=== PATIENT | female | born 1965 | race Caucasian/White ===

== ENCOUNTER 2018-07-23 14:52 | Outpatient (CLI) | payer OTHER ==
--- NOTE | 2018-07-23 16:13 | BD ---
BONE DENSITOMETRY USING DEXA: HISTORY: Postmenopausal screening for osteoporosis. FINDINGS: Lumbar Spine: BMD (g/cm2) L1 0.812 T-Score: -1.6 Z-Score: -0.7 L2 0.880 T-Score: -1.3 Z-Score: -0.3 L3 0.883 T-Score: -1.8 Z-Score: -0.7 L4 0.932 T-Score: -1.2 Z-Score: -0.1 L1-L4 0.878 T-Score: -1.5 Z-Score: -0.5 Femoral Neck: 0.790 T-Score: -1.3 Z-Score: -0.2 Total Femur: 0.941 T-Score: 0.0 Z-Score: 0.7 Impression: Osteopenia. POS: [facility]
== END 2018-07-23 14:53 | disposition home or self-care (01) ==
LOC: BICMAMMO 14:52
PROVIDERS: ATTEND Obstetrics & Gynecology
DX: Z12.31 Encounter for screening mammogram for malignant neoplasm of breast (principal); Z13.820 Encounter for screening for osteoporosis; M85.89 Other specified disorders of bone density and structure, multiple sites
CPT/HCPCS: 77063; 77067; 77080

== ENCOUNTER 2019-08-21 14:08 | Outpatient (CLI) | payer OTHER ==
--- NOTE | 2019-08-21 14:38 | MMO ---
Bilateral MAMMO Bilat Screen [facility]. CLINICAL HISTORY: Patient is 54 years old and is seen for screening. The patient has no family history of breast cancer. The patient has no personal history of cancer. The patient has a history of bilateral Breast reduction in 2001. VIEWS: The views performed were: bilateral craniocaudal with tomosynthesis and bilateral mediolateral oblique with tomosynthesis. FILMS COMPARED: The present examination has been compared to prior imaging studies performed at [facility] on 05/05/2015, 06/27/2016, 07/16/2017 and 07/23/2018. This study has been interpreted with the assistance of computer-aided detection. MAMMOGRAM FINDINGS: There are scattered fibroglandular densities. There are stable benign appearing calcifications seen in both breasts. There are no suspicious masses, suspicious calcifications, or new areas of architectural distortion. IMPRESSION: THERE IS NO MAMMOGRAPHIC EVIDENCE OF MALIGNANCY. A ROUTINE FOLLOW-UP MAMMOGRAM IN 1 YEAR IS RECOMMENDED. THE RESULTS OF THIS EXAM WERE SENT TO THE PATIENT. ACR BI-RADS Category 2 - Benign finding MAMMOGRAPHY NOTE: 1. A negative mammogram report should not delay a biopsy if a dominant of clinically suspicious mass is present. 2. Approximately 10% to 15% of breast cancers are not detected by mammography. 3. Adenosis and dense breasts may obscure an underlying neoplasm. Reported by: BLAKE AGUILAR MD Electonically Signed: [id number]
== END 2019-08-21 14:09 | disposition home or self-care (01) ==
LOC: BICMAMMO 14:08
PROVIDERS: ATTEND Physician Assistant
DX: Z12.31 Encounter for screening mammogram for malignant neoplasm of breast (principal)
CPT/HCPCS: 77063; 77067

== ENCOUNTER 2019-11-20 06:39 | Day surgery (SDC) | payer OTHER ==
[2019-11-19 15:15] VITALS: BMI 24.5
[2019-11-20 08:14] LABS: Bacteria/HPF None Seen HPF (None Seen); Bilirubin Negative (Negative); Blood, Urine Negative (Negative); Clarity Clear (Clear); Glucose, Urine (Dipstick) Normal (Negative); Leukocyte 250 Leu/uL (Negative); Nitrite Negative (Negative); Protein, Urine (Dipstick) Negative (Neg-Trace); Squamous Epithelial 0-3 HPF (0-3); Urobilinogen Normal mg/dL (Less than 2)
[2019-11-20] MEDS ORDERED: Bacitracin Zinc Ointment 30 gm TUBE ONE (08:16)
[2019-11-20] MEDS ORDERED: Bupivacaine PF 0.5% 30 ML VIAL ONE (08:16)
[2019-11-20 08:21] LABS: #Basophils 0.1 thou/uL (0.0-0.2); #Eosinphils 0.3 thou/uL (0.0-0.7); #Lymphocytes 1.8 thou/uL (1.20-3.40); #Monocytes 0.4 thou/uL (0.11-0.59); #Neutrophils 4.2 thou/uL (1.40-6.50); %Basophils 0.8 % (0.0-1.0); %Eosinophils 4.4 % (0.0-10.0); %Lymphocytes 27.1 % (21.0-51.0); %Monocytes 5.7 % (0.0-10.0); Hemoglobin 12.9 g/dL (12.0-16.0); Mean Corpuscular HGB CONC 34.3 g/dL (32.0-36.0); Mean Corpuscular Hemoglobin 32.7 pg (27.0-31.0); Mean Corpuscular Volume 95.3 fL (78.0-98.0); Mean Platelet Volume 6.9 fL (7.4-10.4); Platelet Count 284 thou/uL (130-400); RBC Distribution Width 12.1 % (11.5-14.5); Red Blood Cell (RBC) Count 3.93 mill/uL (4.20-5.40); White Blood Cell (WBC) Count 6.7 thou/uL (4.8-10.8)
[2019-11-20] MEDS ORDERED: Midazolam HCl 2 mg/2 ml Vial ONE ×2 (08:26→08:28)
[2019-11-20] MEDS ORDERED: Fentanyl 100 MCG/2 ML VIAL ONE ×2 (08:28→10:06)
[2019-11-20] MEDS ORDERED: Propofol 1,000 MG/100 ML VIAL IV ONE (08:28)
[2019-11-20] MEDS ORDERED: PROPOFOL 200 MG/20 ML VIAL ONE (09:29)
[2019-11-20] MEDS ORDERED: Ketorolac Tromethamine 30 MG/ML VIAL ONE (09:43)
--- NOTE | 2019-11-20 10:18 | OP ---
DATE OF PROCEDURE: 11/20/2019 PREOPERATIVE DIAGNOSES: 1. Wound with abscess, left small finger. 2. Possible myelitis, left small finger, distal phalanx. POSTOPERATIVE DIAGNOSES: 1. Wound with abscess, left small finger. 2. Possible myelitis, left small finger, distal phalanx. PROCEDURE PERFORMED: 1. Debridement of small finger wound. 2. Bone cortex incision, distal phalanx, with irrigation. SPECIMEN: 1. Bone for biopsy and culture. 2. Necrotic tissue culture. INDICATIONS: Patient had a history of erythema, swelling, and wound that had previously drained and been placed on antibiotics for 10 days prior to my evaluation. She did not respond, had erythema, bulbous, swelling, possible fluctuance and she had an area of 3 mm with necrosis consistent with old abscess. For this reason, I felt she needed debridement, bone debridement and possible biopsy and leave the wound open. DESCRIPTION OF PROCEDURE: After successful anesthesia with 10 mL of 0.5% Marcaine and conscious sedation, we waited 10 minutes, prepped and draped the limb and exsanguinated the limb and inflated the tourniquet to 250 mmHg pressure. We made a 1.5 cm long incision beginning just subungual where she had a 3 mm area of necrosis. We completely debrided that down to including the bone. The pulp space deep showed no gross infection, but we opened it and drained it. We then also took a biopsy of the bone and a culture of the bone. A culture of the necrotic area was sent separate, thus three specimens went to Pathology. The patient then had the area irrigated with 500 mL normal saline. Tourniquet deflated. Had excellent bleeding from the bone and soft tissue with 1 second refill and pink digit. We then placed a small piece of a normal saline soaked 4x4 in the wound, left it open. Bulky dressing was applied with a finger tube gauze and a loop around the wrist to keep it from being dislodged. She left the operating room without evidence of anesthetic or operative complication. Job ID: [id number]
[2019-11-20] MEDS ORDERED: HYDROcodone/Acetaminophen 5/325 mg Tablet ONE (10:54)
[2019-11-20 12:56] LABS: Anion Gap 10 mmol/L (10-20); BUN (Urea Nitrogen) 10 mg/dL (9.8-20.1); Calc. Creatinine Clearance 78 mL/min (70-130); Calcium 8.7 mg/dL (7.8-10.44); Carbon Dioxide 25 mmol/L (22-29); Chloride 109 mmol/L (98-107); Estimated GFR-MDRD 80; Glucose 144 mg/dL (70-105); Potassium 4.3 mmol/L (3.5-5.1); Sodium 140 mmol/L (136-145)
[2019-11-24 12:37] LABS: Fungus Stain Final report (.); Fungus Stain Result 1 Yeast observed (.)
[2019-11-24 12:37] LABS: Fungus Stain Final report (.)
== END 2019-11-20 13:05 | disposition home or self-care (01) ==
LOC: SDC 06:39
PROVIDERS: ATTEND Orthopaedic Surgery Hand Surgery
PROC: 0P9 Upper Bones, Drainage (ICD-10-PCS; principal; 2019-11-20)
DX: M86.641 Other chronic osteomyelitis, right hand (principal); B96.89 Other specified bacterial agents as the cause of diseases classified elsewhere; M87.844 Other osteonecrosis, right finger(s); L03.011 Cellulitis of right finger; K21.9 Gastro-esophageal reflux disease without esophagitis; I10 Essential (primary) hypertension; E78.00 Pure hypercholesterolemia, unspecified; E78.5 Hyperlipidemia, unspecified; F41.9 Anxiety disorder, unspecified; Z79.899 Other long term (current) drug therapy
CPT/HCPCS: 36415; 80048; 81001; 85025; 87070; 87077; 87102; 87186; 87205; 87206; 88307; 88311; J0690; J1885; J2250; J2704; J3010; J3490; S0020

== ENCOUNTER 2020-01-12 10:01 | Outpatient (CLI) | payer OTHER ==
--- NOTE | 2020-01-12 11:44 | MRI ---
MRI RIGHT FINGER WITHOUT CONTRAST: Date: 01/12/2020 HISTORY: B99.9 persistent infection. Right little finger swelling since October. COMPARISON: Outside study radiographs dated 12/21/2019. FINDINGS: Exam is limited due to motion artifact on the T2 fat sat sequences. There is very mild loss of marrow signal within the distal phalanx tuft of the small finger with mild increased fluid signal. The soft tissues of the distal phalanx and middle phalanx are mildly swollen. No significant tenosynovial inf ectious fluid appreciated. Evaluation for abscess is limited without intravenous contrast. Erosive changes of the tuft of the distal phalanx and small finger. IMPRESSION: Erosion of the tuft of the distal phalanx of the small finger with subtle loss of normal marrow signa l within the tuft medullary cavity suggesting osteomyelitis. There is some mild adjacent cellulitis o f the distal phalanx and middle phalanx. No evidence for distal interphalangeal joint septic arthriti s. POS: HOME
== END 2020-01-12 10:02 | disposition home or self-care (01) ==
LOC: MRI 10:01
PROVIDERS: ATTEND Orthopaedic Surgery Hand Surgery
DX: B99.9 Unspecified infectious disease (principal); L03.011 Cellulitis of right finger; M85.841 Other specified disorders of bone density and structure, right hand; R93.6 Abnormal findings on diagnostic imaging of limbs; B35.1 Tinea unguium
CPT/HCPCS: 36415; 85025; 85652

== ENCOUNTER 2020-08-29 16:00 | Outpatient (CLI) | payer OTHER ==
--- NOTE | 2020-08-29 16:35 | MMO ---
Bilateral MAMMO Bilat Screen [facility]. CLINICAL HISTORY: Patient is 55 years old and is seen for screening. The patient has no family history of breast cancer. The patient has no personal history of cancer. The patient has a history of bilateral Breast reduction in 2001. VIEWS: The views performed were: bilateral craniocaudal with tomosynthesis and bilateral mediolateral oblique with tomosynthesis. FILMS COMPARED: The present examination has been compared to prior imaging studies performed at [facility] on 06/27/2016, 07/16/2017, 07/23/2018 and 08/21/2019. This study has been interpreted with the assistance of computer-aided detection. MAMMOGRAM FINDINGS: There are scattered fibroglandular densities. There are stable calcifications seen in both breasts. There are no suspicious masses, suspicious calcifications, or new areas of architectural distortion. IMPRESSION: THERE IS NO MAMMOGRAPHIC EVIDENCE OF MALIGNANCY. A ROUTINE FOLLOW-UP MAMMOGRAM IN 1 YEAR IS RECOMMENDED. THE RESULTS OF THIS EXAM WERE SENT TO THE PATIENT. ACR BI-RADS Category 2 - Benign finding MAMMOGRAPHY NOTE: 1. A negative mammogram report should not delay a biopsy if a dominant of clinically suspicious mass is present. 2. Approximately 10% to 15% of breast cancers are not detected by mammography. 3. Adenosis and dense breasts may obscure an underlying neoplasm. Reported by: LUCIO HURD MD Electonically Signed: [id number]
== END 2020-08-29 16:01 | disposition home or self-care (01) ==
LOC: BICMAMMO 16:00
PROVIDERS: ATTEND Physician Assistant
DX: Z12.31 Encounter for screening mammogram for malignant neoplasm of breast (principal); Z98.82 Breast implant status
CPT/HCPCS: 77063; 77067

== ENCOUNTER 2023-07-09 15:48 | Outpatient (CLI) | payer BC | END 2023-07-09 15:49 | disposition home or self-care (01) | LOC: BICRAD 15:48 | PROVIDERS: ATTEND Nurse Practitioner Family | DX: M54.50 Low back pain, unspecified (principal); M47.816 Spondylosis without myelopathy or radiculopathy, lumbar region; M46.06 Spinal enthesopathy, lumbar region; M89.38 Hypertrophy of bone, other site | CPT/HCPCS: 72100; 72220 ==